=== PATIENT | male | born 1995 | race Two or more races ===

== ENCOUNTER 2024-03-09 18:21 | Emergency (ER) | payer MEDICAID, OTHER ==
[~2024-03-09] VITALS: Ht 165.1 cm; Wt 54.5 kg
[2024-03-09 20:00] VITALS: PULSE 102; RESP 22; O2SAT 100
[2024-03-09 20:03] LABS: Basophils # (auto) 0 10 ^3/uL (0-0.2); Eosinophils # (auto) 0 10 ^3/uL (0-0.8); Hematocrit 40.9 % (41.0-53.0); Hemoglobin 13.4 g/dL (13.5-17.5); Lymphocytes # (auto) 0.7 10 ^3/uL (0.4-5.4); Lymphocytes % (auto) 4.1 % (10.0-50.0); Mean Corpuscular Hemoglobin 27.5 pg (28.0-32.0); Mean Corpuscular Hgb Conc. 32.6 g/dL (32.0-36.0); Mean Corpuscular Volume 84.1 fL (80.0-100.0); Monocytes % (auto) 12.3 % (0.0-12.0); Neutrophils # (auto) 13.7 10 ^3/uL (1.6-8.6); Neutrophils % (auto) 83.6 % (37.0-80.0); Red Blood Cells 4.87 10^6/uL (4.5-5.90); Red Cell Distribution Width 15.5 % (11.8-14.3); White Blood Cell 16.3 10^3/uL (4.4-10.8)
[2024-03-09 20:08] LABS: Urine Bacteria None Seen /hpf (None Seen)
[2024-03-09 20:13] LABS: Alanine Aminotransferase 113 U/L (7-40); Alkaline Phosphatase 55 U/L (46-116); Anion Gap 8 (5-15); Aspartate Aminotransferase 30 U/L (13-40); BUN/Creatinine Ratio 7.8 (10.0-20.0); Blood Alcohol < 3.0 mg/dL (<10); Blood Urea Nitrogen 7 mg/dL (9-23); Calcium 9.8 mg/dL (8.5-10.1); Carbon Dioxide 25 mmol/L (20-30); Chloride 108 mmol/L (98-107); Glucose 84 mg/dL (74-106); Potassium 3.6 mmol/L (3.5-5.1); Sodium 141 mmol/L (136-145)
[2024-03-09 20:14] LABS: Acetaminophen < 2.0 UG/ML (10.0-20.0); Albumin 4.5 g/dL (3.2-4.8); Bilirubin, Total 0.8 mg/dL (0.2-1.0); Total Protein 6.6 g/dL (5.7-8.2)
[2024-03-09 20:15] LABS: Salicylate < 3.0 mg/dL (2.8-20.0)
[2024-03-09 20:17] LABS: Urine Amorphous Crystal FEW /hpf (None Seen); Urine Blood Negative /uL (Negative); Urine Clarity Ex.Turbid (Clear); Urine Color Colorless (Yellow); Urine Protein, UAD TRACE (Negative); Urine Specific Gravity 1.015 (1.001-1.035); Urine Urobilinogen Normal (Negative); Urine WBC 12 /hpf (0 - 3)
[2024-03-09 20:27] LABS: Amphetamine Screen, Urine Neg (NEGATIVE); Barbiturate Scree,Urine Neg (NEGATIVE); Benzodiazephine Screen, Urine Neg (NEGATIVE); Cannabinoid Screen, Urine Pos (NEGATIVE); Cocaine Screen, Urine Neg (NEGATIVE); Opiate Scree,Urine Neg (NEGATIVE); Phencyclidine Screen, Urine Neg (NEGATIVE)
[2024-03-09] MEDS: hydrOXYzine 25 MG TAB or CAP PO ONE (20:30)
[2024-03-09] MEDS: LITHIUM CARBONATE 300 MG TAB PO ONE (20:30)
[2024-03-09] MEDS: risperiDONE 1 MG TAB PO ONE (21:04)
[2024-03-09] MEDS: LORazepam 0.5 MG TAB PO ONE (21:43)
[2024-03-10 08:19] VITALS: PULSE 76; RESP 14; O2SAT 98
[2024-03-10] MEDS: risperiDONE 1 MG TAB PO SCH (11:15)
[2024-03-10] MEDS: LITHIUM CARBONATE 300 MG TAB PO SCH (11:15)
[2024-03-10] MEDS ORDERED: hydrOXYzine 25 MG TAB or CAP PO PRN ×2 (11:30→18:00)
[2024-03-10 14:00] VITALS: BP 110/67; PULSE 91; RESP 16; O2SAT 98
[2024-03-10] MEDS ORDERED: HYDR-4924 PO (18:30)
[2024-03-10] MEDS ORDERED: RIS1T PO (18:30)
[2024-03-10] MEDS ORDERED: LITH300T5 PO (18:30)
== END 2024-03-10 18:30 | disposition left against medical advice (07) ==
LOC: ER 18:21 → EDBD 18:21 → ER 03-10 18:30
DX: F41.0 Panic disorder [episodic paroxysmal anxiety] (principal); F41.9 Anxiety disorder, unspecified; F20.9 Schizophrenia, unspecified; Z79.899 Other long term (current) drug therapy
CPT/HCPCS: 36415; 80053; 80307; 80320; 80329; 81001; 85025; 93005